=== PATIENT | male | born 1955 | race Caucasian/White ===

== ENCOUNTER 2016-06-03 09:37 | Day surgery (SDC) | payer BC ==
--- NOTE | 2016-05-24 10:01 | PAT Medication Instructions ---
Service Date May 24, 2016. 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 Instructions For Your Scheduled Surgery - Instructions to be given by surgeon: Aspirin (Aspirin Ec), 650 MG PO PRN - Hold the following medications the morning of surgery: Tizanidine (Zanaflex), 4 MG PO TID PRN for RN Folic Acid (Folvite), 1 MG PO QAM Losartan Potassium (Cozaar), 100 MG PO QAM Pseudoephedrine (Sudafed), 30 MG PO PRN - Take the following medications the morning of surgery with a sip of water OTHERWISE NOTHING TO EAT OR DRINK AFTER MIDNIGHT: Alfuzosin Hcl (Uroxatral), 10 MG PO QAM Hydrocodone/Acetaminophen ([place] 10/325 Tab), 1 TAB PO Q4H PRN (may take if needed up to 4 hours prior to surgery) Pentoxifylline (Pentoxifylline ER), 400 MG PO TID - Take the following medications as scheduled the night before surgery: Tizanidine (Zanaflex), 4 MG PO TID PRN for RN Hydrocodone/Acetaminophen ([place] 10/325 Tab), 1 TAB PO Q4H PRN for N Ranitidine (Zantac), 300 MG PO HS PRN for PRN If you have any questions please call us at [phone] (Sparkle Ribera PA-C ) or [phone] or [phone]
[2016-05-24 10:57] LABS: BASO % 0.1 %; BASO ABS # 0.01 K/uL (0-0.2); COMPLETE YES; EOS % 2.4 %; HEMATOCRIT 45.9 % (42-52); IG% 0.1 %; LYMPH % 23.1 %; LYMPH ABS # 1.72 K/uL (1.2-3.4); MEAN CORPUSCULAR HEMOGLOBIN 33.3 pg (25-34); MEAN CORPUSCULAR HGB CONC 36.2 g/dl (32-36); MEAN PLATELET VOLUME 10.4 fL (7.4-10.4); MONO % 11.9 %; NEUT % 62.4 %; PLATELET COUNT 248 K/uL (130-400); RED BLOOD COUNT 4.99 M/uL (4.7-6.1); WHITE BLOOD COUNT 7.46 K/uL (4.8-10.8)
[2016-05-24 11:22] LABS: BUN/CREATININE RATIO 17.5 (10-20); CALCIUM 8.7 mg/dl (8.5-10.1); POTASSIUM 4.6 mmol/L (3.5-5.1)
[~2016-06-03] VITALS: Ht 188 cm; Wt 105.2 kg
[~2016-06-03 09:37] MED LIST: ALFU10TA30 PO; ASPI325T39 PO; CEFAZOLIN 2000 MG/60 ML D5W IV SCH; FOLI1TAB7 PO; HEPARIN SOD 5000 UNIT/0.5 ML CARP SQ SCH; HYDR-4383 PO; LACTATED RINGER'S 1000ML 1,000 ML IV SCH; LOSA1TAB38 PO; PSEU30TA20 PO; RANI300T2 PO; TIZA4CAP PO; TRN400 PO
[2016-06-03 09:51] VITALS: BP 167/99; PULSE 72; TEMP 36.7; O2SAT 99; Ht 188 cm; Wt 105.2 kg
--- NOTE | 2016-06-03 10:55 | History & Physical Bridge Note ---
H&P Re-Evaluation Bridge Note: I have examined the patient, reviewed the History & Physical and in the interval since the performance of the History & Physical I have noted the following changes of clinical significance: No changes noted. rediscussed the procedure which will be an open repair with mesh. questions answered. ok to proceed.
--- NOTE | 2016-06-03 10:57 | Discharge Instructions ---
Discharge Instructions Admission Reason for Admission: Recurrent Left Inguinal Hernia Discharge Discharge Diagnosis / Problem: recurrent left inguinal hernia Discharge Goals Goal(s): Decrease discomfort, Improve function Activity Recommendations Activity Limitations: as noted below Lifting Limitations: no more than 10 pounds Exercise/Sports Limitations: until after follow-up appointment May Resume Sexual Activity: after follow-up appointment Shower/Bathe: tomorrow . Instructions / Follow-Up Instructions / Follow-Up f/u with Dr. Salamanca as scheduled. Current Hospital Diet Patient's current hospital diet: Discharge Diet Recommended Diet: Regular Diet Pending Studies Studies pending at discharge: no Medical Emergencies . Who to Call and When: Medical Emergencies: If at any time you feel your situation is an emergency, please call 911 immediately. . Non-Emergent Contact Non-Emergency issues call your: Primary Care Provider, Surgeon Call Non-Emergent contact if: temperature is above 101, wound has increased drainage, wound has increased redness . "Provider Documentation" section prepared by Robinson Salamanca. VTE Core Measure Inpt VTE Proph given/why not?: Unfractionated heparin SQ, SCD's
[2016-06-03] MEDS ORDERED: FENTANYL CITRATE INJ 50 MCG/1 ML 2 ML VIAL ONE ×2 (11:00→12:01)
[2016-06-03] MEDS ORDERED: MIDAZOLAM HCL 1 MG/ML 2ML VIAL ONE (11:00)
[2016-06-03] MEDS ORDERED: KETOROLAC TROMETHAMINE 30 MG/ML VIAL ONE (11:27)
[2016-06-03] MEDS ORDERED: LIDOCAINE HCL 2% 2 ML VIAL (20MG/ML) ONE (11:27)
[2016-06-03] MEDS ORDERED: DEXAMETHASONE SOD INJ 4 MG/ML VIAL ONE (11:27)
[2016-06-03] MEDS ORDERED: ONDANSETRON INJ 2 MG/ML 2 ML VIAL ONE (11:27)
[2016-06-03] MEDS ORDERED: PROPOFOL IV EMULSION 10 MG/ML 20 ML VIAL IV ONE (11:27)
[2016-06-03] MEDS ORDERED: PROMETHAZINE HCL INJ 6.25 MG in SODIUM CHLORIDE 0.9% 50ML 50 ML IV PRN (11:45)
[2016-06-03] MEDS ORDERED: EpHEDrine SULFATE INJ 50 MG/ML AMP IV PRN (11:45)
[2016-06-03] MEDS ORDERED: FENTANYL CITRATE INJ 50 MCG/1 ML 2 ML VIAL IV PRN (11:45)
[2016-06-03] MEDS ORDERED: ATROPINE SULFATE 0.1 MG/ML 5ML SYR IV PRN (11:45)
[2016-06-03] MEDS ORDERED: HYDROmorphone INJ 1 MG/ML SYR IV PRN (11:45)
[2016-06-03] MEDS ORDERED: ONDANSETRON INJ 2 MG/ML 2 ML VIAL IV PRN ×3 (11:45→13:00)
[2016-06-03] MEDS ORDERED: GLYCOPYRROLATE INJ 0.2 MG/ML VIAL ONE (12:07)
[2016-06-03] MEDS ORDERED: EpHEDrine SULFATE INJ 50 MG/ML AMP ONE (12:07)
[2016-06-03] MEDS ORDERED: BUPIVACAINE/EPINEPHRINE 0.5% MPF 1:200,000 30 ML VIAL INJ ONE (12:35)
[2016-06-03] MEDS ORDERED: LACTATED RINGER'S 1000ML 1,000 ML IV SCH (12:43)
--- NOTE | 2016-06-03 12:44 | History & Physical Bridge Note ---
H&P Re-Evaluation Bridge Note: I have examined the patient, reviewed the History & Physical and in the interval since the performance of the History & Physical I have noted the following changes of clinical significance: No changes noted
[2016-06-03] MEDS ORDERED: OXYCODONE/ACETAMINOPHEN 5-325 TAB PO PRN ×3 (12:45→13:00)
[2016-06-03] MEDS ORDERED: MoRPHine SULFATE 2 MG/ML CARP IV PRN (12:45)
[2016-06-03] MEDS ORDERED: SODIUM CHLORIDE 0.9% 1000ML 1,000 ML IV SCH (12:47)
--- NOTE | 2016-06-03 12:50 | [facility] Operative Report ---
Operative Report Operative Date Jun 03, 2016. Pre-Operative Diagnosis Left Recurrent Inguinal Hernia Post-Operative Diagnosis large recurrent left inguinal hernia Procedure(s) Performed open repair of recurrent LIH with mesh ( plug and patch); ilioinguinal neurolysis Surgeon Dr. Robinson Salamanca Video Machines Mechanic Surgeon(s) Rosendo Rodriguez PA-C Estimated Blood Loss 20ml Findings large recurrent LIH Specimens No Specimen Anesthesia general with LMA Disposition Recovery Room / PACU I attest to the content of the Intraoperative Record and any orders documented therein. Any exceptions are noted below.
[2016-06-03] MEDS ORDERED: MoRPHine SULFATE 10 MG/ML CARP/VIAL IV PRN (13:00)
[2016-06-03] MEDS ORDERED: KETOROLAC TROMETHAMINE 30 MG/ML VIAL IV. PRN (13:00)
[2016-06-03] MEDS ORDERED: IBUPROFEN 600 MG TAB PO PRN (13:00)
[2016-06-03] MEDS ORDERED: MoRPHine SULFATE 4 MG/ML 1 ML CARP\\VIAL IV PRN (13:00)
--- NOTE | 2016-06-03 13:45 | Anesthesiology Progress Note ---
Anesthesia Post Op Note Date & Time Jun 03, 2016 at 13:45 Vital Signs Pain Intensity: 2 Vital Signs Past 12 Hours Date Time Temp Pulse Resp B/P Pulse Ox O2 Delivery O2 Flow Rate FiO2 06/03/16 13:30 36.0 61 16 153/95 93 Room Air 06/03/16 13:20 76 16 138/83 93 Room Air 06/03/16 13:10 67 16 129/77 95 Room Air 06/03/16 13:00 63 14 127/60 100 Mask 10 06/03/16 12:50 74 14 125/59 100 Mask 10 06/03/16 12:44 36.2 70 13 125/70 100 Mask 10 06/03/16 09:51 36.7 72 20 167/99 99 Notes Mental Status: alert / awake / arousable, participated in evaluation Pt Amnestic to Procedure: Yes Nausea / Vomiting: adequately controlled Pain: adequately controlled Airway Patency, RR, SpO2: stable & adequate BP & HR: stable & adequate Hydration State: stable & adequate Anesthetic Complications: no major complications apparent
[2016-06-03 13:50] VITALS: BP 152/92; PULSE 65; TEMP 36.4; O2SAT 96
--- NOTE | 2016-06-03 14:05 | OPERATIVE REPORT ---
DATE OF OPERATION: 06/03/2016 PREOPERATIVE DIAGNOSIS: Recurrent left inguinal hernia. POSTOPERATIVE DIAGNOSIS: Same. PROCEDURE: 1. Open repair of recurrent left inguinal hernia with mesh. 2. Ilioinguinal neurolysis. SURGEON: Dr. Salamanca. BUSINESS ENGLISH INSTRUCTOR: Jose A Rodriguez PA-C. ESTIMATED BLOOD LOSS: 20 mL. COMPLICATIONS: No immediate complications. ANESTHESIA: General with laryngeal mask airway. OPERATION AND FINDINGS: OPERATIVE NOTE: After informed consent was obtained, the patient was taken to the operating suite, placed in supine position. After successful intubation a Goss catheter was placed. The left groin was shaved and sterilely prepped and draped in usual fashion. I made an incision about an inch above his prior incision so I could start with new tissue. This was an inguinal incision and carried down through the soft tissue using electrocautery. I was able to skeletonize the external oblique aponeurosis and then make an incision in it with a new blade. We used a Metzenbaum scissors to extend this distally through the ring as well as for several centimeters proximally. Once in the inguinal canal, we immediately noted a large hernia defect. It took us some time because of his prior repair. It appeared to me as though it was a Shouldice type of repair. There was suturing conjoined tendon over to the ilioinguinal ligament. I took down some of these sutures to exposure the anatomy. I was able to identify the cord and cord structures and elevate them off the pubic bone and put a [place] drain around them. The proximal site of the vas deference itself had an abnormal contour and entered through the abdominal wall in an abnormal angle; however, there was nothing I could do about it, that was the way that it had healed from his prior surgery. We were able to identify a very large hernia sac that was coming down the cord structures consistent with a large indirect hernia. We were able to dissect the hernia sac away from the cord and cord structures using primarily blunt dissection with small amounts of electrocautery. Once we had the sac completely down, we were able to quite easily dunk it back into the abdominal cavity. Because of the sheer size of the defect we used a plug and patch technique. I used a polypropylene plug into the area and sutured it to the surrounding musculature using 0 Neurontin simple interrupted fashion. Once we did this, we thoroughly irrigated the wound. I was able to then use a patch piece of polypropylene. I secured it to Fernando's ligament distally along the shelving portion of Poupart's ligament laterally and along the midline abdominal musculature medially. The "arms" of the mesh were wrapped around behind the cord and cord structures and secured to underlying muscle as well. The mesh laid nice and tension free, was not impinging on the cord itself. Prior to placing the mesh I did identify the ilioinguinal nerve. I went ahead and sharply lysed it to prevent sutured cord or nerve entrapment. Final irrigation was performed. I injected some Marcaine around the edges of the mesh. We then closed the external oblique aponeurosis with 2-0 Vicryl in a running fashion. Soft tissue was irrigated and closed using 3-0 Vicryl and 4-0 Monocryl for the skin. Some additional Marcaine was injected around the skin and skin glue used as dressing. The patient was awakened, extubated, and transferred to recovery in stable condition. I attest to the content of the Intraoperative Record and any orders documented therein. Any exceptio ns are noted below.
[2016-06-03] MEDS ORDERED: HYDR-4383 PO (14:23)
[2016-06-03 14:26] VITALS: BP 151/89; PULSE 64; O2SAT 96
[2016-06-03 14:45] VITALS: BP 159/92; PULSE 63; TEMP 36.6; O2SAT 96
== END 2016-06-03 15:02 | disposition home or self-care (01) ==
LOC: C.ACU 09:37
PROVIDERS: ATTEND Surgery
DX: K40.91 Unilateral inguinal hernia, without obstruction or gangrene, recurrent (principal); K21.9 Gastro-esophageal reflux disease without esophagitis; N40.0 Benign prostatic hyperplasia without lower urinary tract symptoms; M10.9 Gout, unspecified; I10 Essential (primary) hypertension; N52.9 Male erectile dysfunction, unspecified; N48.6 Induration penis plastica

== ENCOUNTER → 2016-07-29 | Outpatient (CLI) | payer BC ==
[~2016-07-29] MED LIST changes: -CEFAZOLIN 2000 MG/60 ML D5W IV SCH; -HEPARIN SOD 5000 UNIT/0.5 ML CARP SQ SCH; -LACTATED RINGER'S 1000ML 1,000 ML IV SCH
[2016-07-29 12:08] LABS: BASO % 0.3 %; BASO ABS # 0.02 K/uL (0-0.2); COMPLETE YES; EOS % 2.4 %; HEMATOCRIT 49.2 % (42-52); IG% 0.1 %; LYMPH % 27.1 %; LYMPH ABS # 2.05 K/uL (1.2-3.4); MEAN CELL VOLUME 92.5 fL (80-100); MEAN CORPUSCULAR HEMOGLOBIN 32.1 pg (25-34); MEAN CORPUSCULAR HGB CONC 34.8 g/dl (32-36); MEAN PLATELET VOLUME 10.4 fL (7.4-10.4); MONO % 11.1 %; PLATELET COUNT 259 K/uL (130-400); RED BLOOD COUNT 5.32 M/uL (4.7-6.1); WHITE BLOOD COUNT 7.56 K/uL (4.8-10.8)
[2016-07-29 12:30] LABS: ESTIMATED AVERAGE GLUCOSE 108 mg/dl; HA1C FLAG Normal (Normal)
[2016-07-29 12:31] LABS: ALT/SGPT 36 U/L (12-78); BLOOD UREA NITROGEN 22 mg/dl (7-18); BUN/CREATININE RATIO 21.6 (10-20); CALCIUM 8.9 mg/dl (8.5-10.1); CARBON DIOXIDE 28 mmol/L (21-32); CHLORIDE 107 mmol/L (98-107); CHOLESTEROL 171 mg/dl (0-200); GLUCOSE 95 mg/dl (70-99); POTASSIUM 4.8 mmol/L (3.5-5.1); SODIUM 142 mmol/L (136-145); TRIGLYCERIDES 91 mg/dl (0-150); URIC ACID 5.7 mg/dl (2.6-7.2); VERY LOW DENSITY LIPOPROT CALC 18 mg/dl
[2016-07-29 12:41] LABS: ALB/GLOB RATIO 1.4 (0.9-2); ALKALINE PHOSPHATASE 165 U/L (45-117); AST/SGOT 18 U/L (15-37); CHOLESTEROL/HDL RATIO 3.7; HDL CHOLESTEROL 46 mg/dl; LDL CHOLESTEROL CALCULATED 107 mg/dl; PROSTATE SPECIFIC ANTIGEN 0.521 ng/ml (0.000-4.000)
== END | disposition home or self-care (01) ==
LOC: C.LABBFT 07:47
PROVIDERS: ATTEND Internal Medicine
DX: M10.9 Gout, unspecified (principal); I10 Essential (primary) hypertension; Z12.5 Encounter for screening for malignant neoplasm of prostate

== ENCOUNTER → 2017-08-16 | Outpatient (CLI) | payer BC ==
[~2017-08-16] MED LIST changes: +ALFU10TA2 PO; -ALFU10TA30 PO; -FOLI1TAB7 PO; +FOLI1TAB8 PO
[2017-08-16 12:34] LABS: BASO % 0.4 %; BASO ABS # 0.02 K/uL (0-0.2); EOS % 3.2 %; EOS ABS # 0.18 K/uL (0-0.5); HEMATOCRIT 47.1 % (42-52); HEMOGLOBIN 16.5 g/dL (14.0-18.0); IG# 0.01 K/uL (0.00-0.02); LYMPH % 30.2 %; LYMPH ABS # 1.72 K/uL (1.2-3.4); MEAN CELL VOLUME 90.6 fL (80-100); MEAN CORPUSCULAR HEMOGLOBIN 31.7 pg (25-34); MEAN PLATELET VOLUME 10.2 fL (7.4-10.4); MONO % 13.5 %; MONO ABS # 0.77 K/uL (0.11-0.59); NEUT % 52.5 %; PLATELET COUNT 246 K/uL (130-400); RED CELL DISTRIBUTION WIDTH CV 12.8 % (11.5-14.5); RED CELL DISTRIBUTION WIDTH SD 42.6 fL (36.4-46.3)
[2017-08-16 13:16] LABS: ALBUMIN 3.6 gm/dl (3.4-5.0); ALT/SGPT 33 U/L (12-78); AST/SGOT 22 U/L (15-37); BLOOD UREA NITROGEN 18 mg/dl (7-18); CALCIUM 8.6 mg/dl (8.5-10.1); CARBON DIOXIDE 28 mmol/L (21-32); CREATININE 1.19 mg/dl (0.60-1.40); GLUCOSE 100 mg/dl (70-99); POTASSIUM 4.9 mmol/L (3.5-5.1); SODIUM 138 mmol/L (136-145); URIC ACID 6.3 mg/dl (2.6-7.2)
[2017-08-16 13:21] LABS: ALKALINE PHOSPHATASE 161 U/L (45-117); CHOLESTEROL 170 mg/dl (0-200); LDL CHOLESTEROL CALCULATED 97 mg/dl; TOTAL PROTEIN 7.1 gm/dl (6.4-8.2)
== END | disposition home or self-care (01) ==
LOC: C.LABBFT 07:44
PROVIDERS: ATTEND Internal Medicine
DX: I10 Essential (primary) hypertension (principal); M10.9 Gout, unspecified; Z12.5 Encounter for screening for malignant neoplasm of prostate